=== PATIENT | female | born 1975 | race American Indian/Alaskan Native ===

== ENCOUNTER 2018-02-28 06:14 | Inpatient (IN) | payer BC, OTHER ==
[2018-02-26 11:26] VITALS: BMI 19.0
[2018-02-28 07:03] LABS: BASO % 1.1 % (0.0-2.0); EOS # 0.1 K/uL (0.0-0.7); EOS % 3.9 % (0.0-4.0); HEMOGLOBIN 8.1 g/dL (12.0-16.0); LYMPH # 1.1 K/uL (1.0-4.3); LYMPH % 34.8 % (20.0-40.0); MEAN CELL VOLUME 63.6 fl (81.0-99.0); MEAN CORPUSCULAR HEMOGLOBIN 18.6 pg (27.0-31.0); MEAN CORPUSCULAR HGB CONC 29.2 g/dL (33.0-37.0); MEAN PLATELET VOLUME 6.2 fl (7.2-11.7); MONO # 0.4 K/uL (0.0-0.8); MONO % 12.8 % (0.0-10.0); NEUT # 1.5 K/uL (1.8-7.0); NEUT % 47.4 % (50.0-75.0); NRBC % 0.1 % (0.0-0.0); RBC 4.39 Mil/uL (3.80-5.20); RED CELL DISTRIBUTION WIDTH 19.8 % (11.5-14.5); WHITE BLOOD COUNT 3.2 K/uL (4.8-10.8)
[2018-02-28] MEDS ORDERED: cefOXitin IV 1 gm in Dextrose 2 GM/100 ML BAG IVPB ONE (07:09)
[2018-02-28 07:14] LABS: PROTHROMBIN TIME 11.5 Seconds (9.8-13.1)
[2018-02-28 07:24] LABS: BLOOD UREA NITROGEN 10 mg/dl (7-17); CALCIUM 8.9 mg/dL (8.4-10.2); GFR NON-AFRICAN AMERICAN > 60
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
[2018-02-28] MEDS ORDERED: ePHEDrine 50 mg/ml Inj ONE (07:51)
[2018-02-28] MEDS ORDERED: Midazolam 2 MG/2 ML VIAL ONE (07:52)
[2018-02-28] MEDS ORDERED: Rocuronium 10 mg/ml (5 ml) ONE (07:53)
[2018-02-28] MEDS ORDERED: Succinylcholine 200 mg/10 ml Inj IV ONE (07:55)
[2018-02-28] MEDS ORDERED: Propofol 10 mg/ml Inj (20 ML) ONE (07:55)
[2018-02-28] MEDS ORDERED: Albuterol HFA 90 mcg/actuation (8 g) ONE (07:56)
--- NOTE | 2018-02-28 08:25 | RAD ---
Date of service: 02/28/2018 HISTORY: preop COMPARISON: No prior. TECHNIQUE: Chest PA and lateral FINDINGS: LUNGS: No acute pulmonary disease appreciated bilaterally. PLEURA: No significant pleural effusion identified. No pneumothorax apparent. CARDIOVASCULAR: Normal. OSSEOUS STRUCTURES: No significant abnormalities. VISUALIZED UPPER ABDOMEN: Normal. OTHER FINDINGS: Rounded metallic clips are seen in the bilateral breasts potentially reflecting nipple rings or biopsy clips. IMPRESSION: No acute cardiopulmonary disease appreciated.
[2018-02-28] MEDS ORDERED: Lactated Ringer's 1,000 ML IV ONE ×2 (08:30→09:40)
[2018-02-28] MEDS ORDERED: Sodium Chloride 0.9% 1,000 ML IV ONE (08:55)
[2018-02-28] MEDS ORDERED: Neostigmine 1:1000 (1 mg/ml) Inj ONE (10:35)
[2018-02-28] MEDS ORDERED: DiphenhydrAMINE 50 mg/ml Inj IVP PRN (11:31)
[2018-02-28 11:51] LABS: ABG ALLEN TEST YES; ARTERIAL BLOOD GAS HCO3 21.2 mmol/L (21-28); ARTERIAL BLOOD GAS HEMOGLOBIN 9.6 g/dL (11.7-17.4); ARTERIAL BLOOD GAS O2 CAPACITY 13.9 mL/dL (16-24); ARTERIAL BLOOD GAS O2 SAT 100.6 % (95-98); ARTERIAL BLOOD GAS PCO2 38 mm/Hg (35-45); ARTERIAL BLOOD GAS PH 7.34 (7.35-7.45); ARTERIAL BLOOD GAS PO2 275 mm/Hg (80-100); ARTERIAL BLOOD GAS TCO2 21.7 mmol/L (22-28)
[2018-02-28] MEDS: Acetaminophen IV 1,000 MG in IV SUPPLIES 0 ML IVPB SCH ×3 (11:55→23:25)
[2018-02-28] MEDS: HYDROmorphone 0.5 mg/0.5 ml ISec IVP PRN ×2 (12:10→12:25)
[2018-02-28] MEDS ORDERED: Lactated Ringer's 1,000 ML IV SCH (13:00)
[2018-02-28] MEDS: Lactated Ringer's 1,000 ML IV SCH ×2 (13:50→15:47)
[2018-02-28 16:05] LABS: HEMOGLOBIN 9.4 g/dL (12.0-16.0); MEAN CELL VOLUME 70.1 fl (81.0-99.0); MEAN CORPUSCULAR HEMOGLOBIN 21.1 pg (27.0-31.0); MEAN CORPUSCULAR HGB CONC 30.1 g/dL (33.0-37.0); RBC 4.44 Mil/uL (3.80-5.20); RED CELL DISTRIBUTION WIDTH 25.2 % (11.5-14.5); WHITE BLOOD COUNT 14.8 K/uL (4.8-10.8)
[2018-02-28] MEDS: cefOXitin IV 1 gm in Dextrose 1 GM/50 ML BAG IVPB SCH (16:58)
[2018-03-01] MEDS: cefOXitin IV 1 gm in Dextrose 1 GM/50 ML BAG IVPB SCH ×2 (00:15→09:18)
[2018-03-01] MEDS: Simethicone 80 mg Chewtab PO SCH ×4 (00:15→21:09)
[2018-03-01] MEDS: Lactated Ringer's 1,000 ML IV SCH (00:20)
[2018-03-01] MEDS: Acetaminophen IV 1,000 MG in IV SUPPLIES 0 ML IVPB SCH (05:49)
--- NOTE | 2018-03-01 14:11 | CP.PCM.PN ---
Subjective - Date & Time of Evaluation Date of Evaluation: 03/01/18 Time of Evaluation: 20:00 - Subjective Subjective: feels better toda and ambulating tolerating regular diet Objective - Vital Signs/Intake and Output Vital Signs (last 24 hours): Temp Pulse Resp BP Pulse Ox 99.2 F 82 20 119/78 100 03/01/18 12:20 03/01/18 12:20 03/01/18 12:20 03/01/18 12:20 03/01/18 12:20 Intake and Output: 03/01/18 03/01/18 06:59 18:59 Intake Total 2275 Output Total 2900 Balance -625 - Medications Medications: Current Medications Lactated Ringer's (Lactated Ringer's) 1,000 mls @ 125 mls/hr IV .Q8H [facility] Ibuprofen (Motrin Tab) 800 mg PO Q8 PRN PRN Reason: pain Simethicone (Mylicon Chew Tab) 80 mg PO Q6H [facility] Last Admin: 03/01/18 11:31 Dose: 80 mg - Labs Labs: 02/28/18 15:50 02/28/18 06:56 PT 11.5 Seconds (9.8-13.1) 02/28/18 06:56 INR 1.0 (0.9-1.2) 02/28/18 06:56 APTT 30.0 Seconds (25.6-37.1) 02/28/18 06:56 - Eye Exam Additional comments: v.s stable ansd afebrile incision clean and healing well Assessment and Plan - Assessment and Plan (Free Text) Assessment: stable pod1 s/p myomectomy Plan: continue pesent care
[2018-03-01] MEDS ORDERED: Simethicone 80 mg Chewtab PO ONE (15:00)
--- NOTE | 2018-03-02 02:50 | OP ---
PROCEDURE DATE: 02/28/2018 PREOPERATIVE DIAGNOSES: Fibroid uterus, pelvic pain, and anemia. POSTOPERATIVE DIAGNOSES: Fibroid uterus, pelvic pain, and anemia. SURGEON: Lio Weems MD RUG WEAVER: Anderson Tolentino MD ANESTHESIOLOGIST: Aiyana Beaver MD ANESTHESIA: General anesthesia. PROCEDURE: Myomectomy. FINDINGS: Many uterine fibroids, largest about a golf ball size, and 12 fibroids were removed in all. DESCRIPTION OF PROCEDURE: With the patient in supine position and under general anesthesia, the patient was prepped and draped in the usual sterile manner. Dr. Tolentino assisted in preparation for surgery. After this was done, a low Pfannenstiel incision was made and then taken down to the fascia in layers. The fascia was incised and extended bilaterally. Muscle was from the fascia by sharp dissection after which the muscle was opened in the midline. With Janelle clamps, the peritoneum was grasped, incised, and extended vertically. Upon entering the abdominopelvic cavity, the paracolic gutters were packed with wet laps, pushing the bowel away from the operative field. The uterus was elevated and the fibroids were removed sequentially, each time repairing the incision that was made with 2-0 Vicryl, maintaining hemostasis. There were, as I said before, several fibroids, removed, and each time the incision was . The estimated blood loss was about 200 mL. was available and the patient was given back 125 mL of blood plus 2 units of blood. After this was done, Surgicel and Interceed were used over the incisions to help maintain hemostasis eventually. After these were done, the peritoneum was grasped and closed with 1 Vicryl. The muscle was approximated with 1 Vicryl. The fascia was closed with 1 Vicryl running interlocking stitch, starting at each end and finishing in the midline. Dr. Tolentino is doing his half, and I am doing my half. The skin was closed in a subcuticular fashion with 3-0 Prolene. The patient tolerated the procedure well and was in satisfactory condition on her way to recovery room. Lio Weems MD
[2018-03-02] MEDS: Simethicone 80 mg Chewtab PO SCH ×2 (05:16→09:12)
[2018-03-02 05:42] VITALS: PULSE 88
[2018-03-02 09:14] VITALS: BP 112/76; RESP 18; TEMP 98.5; O2SAT 100
--- NOTE | 2018-03-02 12:23 | CP.PCM.PN ---
Subjective - Date & Time of Evaluation Date of Evaluation: 03/02/18 Time of Evaluation: 12:20 - Subjective Subjective: Denies n/v and tolerating diet well Had BM+ Denies SOB chest or leg pains Objective - Vital Signs/Intake and Output Vital Signs (last 24 hours): Temp Pulse Resp BP Pulse Ox 98.5 F 88 18 112/76 100 03/02/18 09:00 03/02/18 09:00 03/02/18 09:00 03/02/18 09:00 03/02/18 09:00 Intake and Output: 03/02/18 03/02/18 06:59 18:59 Intake Total 600 280 Balance 600 280 - Medications Medications: Current Medications Ibuprofen (Motrin Tab) 800 mg PO Q8 PRN PRN Reason: pain Last Admin: 03/02/18 09:11 Dose: 800 mg Simethicone (Mylicon Chew Tab) 80 mg PO Q6H [facility] Last Admin: 03/02/18 09:12 Dose: 80 mg - Labs Labs: 02/28/18 15:50 02/28/18 06:56 PT 11.5 Seconds (9.8-13.1) 02/28/18 06:56 INR 1.0 (0.9-1.2) 02/28/18 06:56 APTT 30.0 Seconds (25.6-37.1) 02/28/18 06:56 - Constitutional Appears: Well, No Acute Distress - Head Exam Head Exam: ATRAUMATIC - ENT Exam ENT Exam: Mucous Membranes Moist - Neck Exam Neck Exam: Full ROM - Respiratory Exam Respiratory Exam: NORMAL BREATHING PATTERN - GI/Abdominal Exam GI & Abdominal Exam: Soft Additional comments: not distended, depressible Incision clean and dry no suppt or discharge and no sign of infection - Extremities Exam Extremities Exam: Full ROM Additional comments: no leg edema or calf tenderness - Neurological Exam Neurological Exam: Alert, Awake, Oriented x3 - Psychiatric Exam Psychiatric exam: Normal Affect Assessment and Plan - Assessment and Plan (Free Text) Assessment: stable Plan: D/C home with instructions and follow up office 1 wk
--- NOTE | 2018-03-02 12:27 | CP.PCM.DIS ---
Provider - Provider Date of Admission: 02/28/18 12:43 Attending physician: Lio Weems MD Primary care physician: Lio Weems MD Time Spent in preparation of Discharge (in minutes): 10 Diagnosis - Discharge Diagnosis (1) Leiomyoma of uterus Status: Chronic (2) Pelvic pain Status: Chronic (3) Anemia Status: Chronic Hospital Course - Lab Results Lab Results: Most Recent Lab Values WBC 14.8 K/uL (4.8-10.8) H D 02/28/18 15:50 RBC 4.44 Mil/uL (3.80-5.20) 02/28/18 15:50 Hgb 9.4 g/dL (12.0-16.0) L 02/28/18 15:50 Hct 31.1 % (34.0-47.0) L 02/28/18 15:50 MCV 70.1 fl (81.0-99.0) L D 02/28/18 15:50 MCH 21.1 pg (27.0-31.0) L 02/28/18 15:50 MCHC 30.1 g/dL (33.0-37.0) L 02/28/18 15:50 RDW 25.2 % (11.5-14.5) H 02/28/18 15:50 Plt Count 250 K/uL (130-400) D 02/28/18 15:50 MPV 6.2 fl (7.2-11.7) L 02/28/18 06:56 Neut % (Auto) 47.4 % (50.0-75.0) L 02/28/18 06:56 Lymph % (Auto) 34.8 % (20.0-40.0) 02/28/18 06:56 [place] % (Auto) 12.8 % (0.0-10.0) H 02/28/18 06:56 Eos % (Auto) 3.9 % (0.0-4.0) 02/28/18 06:56 Baso % (Auto) 1.1 % (0.0-2.0) 02/28/18 06:56 Neut # (Auto) 1.5 K/uL (1.8-7.0) L 02/28/18 06:56 Lymph # (Auto) 1.1 K/uL (1.0-4.3) 02/28/18 06:56 [place] # (Auto) 0.4 K/uL (0.0-0.8) 02/28/18 06:56 Eos # (Auto) 0.1 K/uL (0.0-0.7) 02/28/18 06:56 Baso # (Auto) 0.0 K/uL (0.0-0.2) 02/28/18 06:56 PT 11.5 Seconds (9.8-13.1) 02/28/18 06:56 INR 1.0 (0.9-1.2) 02/28/18 06:56 APTT 30.0 Seconds (25.6-37.1) 02/28/18 06:56 pCO2 38 mm/Hg (35-45) 02/28/18 11:50 pO2 275 mm/Hg (80-100) H 02/28/18 11:50 HCO3 21.2 mmol/L (21-28) 02/28/18 11:50 ABG pH 7.34 (7.35-7.45) L 02/28/18 11:50 ABG Total CO2 21.7 mmol/L (22-28) L 02/28/18 11:50 ABG O2 Saturation 100.6 % (95-98) H 02/28/18 11:50 ABG O2 Content 14.0 ML/dL (15-23) L 02/28/18 11:50 ABG Base Excess -4.8 mmol/L (-2.0-3.0) L 02/28/18 11:50 ABG Hemoglobin 9.6 g/dL (11.7-17.4) L 02/28/18 11:50 ABG Carboxyhemoglobin 1.3 % (0.5-1.5) 02/28/18 11:50 POC ABG HHb (Measured) -0.6 % (0.0-5.0) L 02/28/18 11:50 ABG Methemoglobin 1.1 % (0.0-3.0) 02/28/18 11:50 ABG O2 Capacity 13.9 mL/dL (16-24) L 02/28/18 11:50 Zeyad Test Yes 02/28/18 11:50 A-a O2 Difference 34.0 mm/Hg 02/28/18 11:50 Hgb O2 Saturation 98.2 % (95.0-98.0) H 02/28/18 11:50 FiO2 50.0 % 02/28/18 11:50 Sodium 141 mmol/l (132-148) 02/28/18 06:56 Potassium 4.0 MMOL/L (3.6-5.0) 02/28/18 06:56 Chloride 108 mmol/L (98-107) H 02/28/18 06:56 Carbon Dioxide 22 mmol/L (22-30) 02/28/18 06:56 Anion Gap 15 (10-20) 02/28/18 06:56 BUN 10 mg/dl (7-17) 02/28/18 06:56 Creatinine 0.7 mg/dl (0.7-1.2) 02/28/18 06:56 Est GFR ( Amer) > 60 02/28/18 06:56 Est GFR (Non-Af Amer) > 60 02/28/18 06:56 Random Glucose 95 mg/dL (65-105) 02/28/18 06:56 Calcium 8.9 mg/dL (8.4-10.2) 02/28/18 06:56 Blood Type O POSITIVE 02/28/18 06:56 Antibody Screen Negative 02/28/18 06:56 Crossmatch See Detail 02/28/18 06:56 BBK History Checked Patient has bt 02/28/18 06:56 - Hospital Course Hospital Course: underwent abdominal myomectomy and BTL No operative complication Had blood transfusion secondary to anemia and did very well post-op Discharge Exam - Head Exam Head Exam: ATRAUMATIC - ENT Exam ENT Exam: Mucous Membranes Moist - Respiratory Exam Respiratory Exam: NORMAL BREATHING PATTERN - GI/Abdominal Exam GI & Abdominal Exam: Normal Bowel Sounds, Soft Additional comments: incision clean and dry no sign of infection - Extremities Exam Additional comments: no leg edema or calf tenderness - Neurological Exam Neurological exam: Alert, Oriented x3 Discharge Plan - Follow Up Plan Condition: GOOD Instructions: Myomectomy, Open Surgery, How to Wash Your Hands Properly Additional Instructions: pelvic and bed rest Rx for iron and Motrim 800mg q 8 hrs given Referrals: iLo Weems MD [Primary Care Provider] -
== END 2018-03-02 14:00 | disposition home or self-care (01) | DRG 743 ==
LOC: H.OPSURG 06:14 → H.PEDS 12:43
PROVIDERS: ADMIT Specialist; ATTEND Specialist
PROC: 0UB90ZZ Excision of Uterus, Open Approach (ICD-10-PCS; principal; 2018-02-28 08:00)
PROC: 30233N1 Transfusion of Nonautologous Red Blood Cells into Peripheral Vein, Percutaneous Approach (ICD-10-PCS; 2018-02-28 08:00)
DX: D25.9 Leiomyoma of uterus, unspecified (principal); J45.909 Unspecified asthma, uncomplicated; D64.9 Anemia, unspecified; Z88.6 Allergy status to analgesic agent; Z88.5 Allergy status to narcotic agent; Z91.018 Allergy to other foods

== ENCOUNTER 2018-04-18 09:52 | Emergency (ER) | payer BC, OTHER ==
[2018-04-18 09:53] VITALS: BMI 19.0
[2018-04-18 09:59] VITALS: RESP 18; TEMP 97.9; O2SAT 100
--- NOTE | 2018-04-18 11:09 | ED PDOC ---
HPI: Female Pain Time Seen by Provider: 04/18/18 10:19 Chief Complaint (Nursing): Female Genitourinary Chief Complaint (Provider): Female Genitourinary History Per: Patient History/Exam Limitations: no limitations Onset/Duration Of Symptoms: Days (1) Associated Symptoms: Urinary Symptoms (bleeding) Additional Complaint(s): 42 years old female with history of anemia presents to the ED for heavy vaginal bleeding onset yesterday. Patient reports her LNMP was normal on January 29 after myomectomy surgery but states this time the bleed is heavier than usual. She reports using 6 pads since last night. Patient also presents for evaluation of left index finger after she slammed it with a car door. She denies any pain at this time. PMD: Lio Weems Past Medical History Reviewed: Historical Data, Nursing Documentation, Vital Signs Vital Signs: Last Vital Signs Temp 97.9 F 04/18/18 09:59 Pulse 79 04/18/18 09:59 Resp 18 04/18/18 09:59 BP 117/84 04/18/18 09:59 Pulse Ox 100 04/18/18 09:59 - Medical History PMH: Anemia, Asthma Denies: Chronic Kidney Disease - Surgical History Other surgeries: Myomectomy - Family History Family History: States: Unknown Family Hx - Social History Current smoker - smoking cessation education provided: No Alcohol: None Drugs: Denies - Home Medications Home Medications: Ambulatory Orders Medication Instructions Recorded Ferrous Sulfate [Feosol] 324 mg PO DAILY 02/26/18 Ibuprofen [Advil] 200 mg PO PRN PRN 02/26/18 - Allergies Allergies/Adverse Reactions: Allergies Allergy/AdvReac Type Severity Reaction Status Date / Time acetaminophen [From Percocet] Allergy Severe ITCHING Verified 02/26/18 11:27 oxycodone [From Percocet] Allergy Severe ITCHING Verified 02/26/18 11:27 chicken Allergy Severe ITCHING Uncoded 02/26/18 11:27 IRON IV AdvReac ITCHING Uncoded 02/28/18 07:35 Review of Systems ROS Statement: Except As Marked, All Systems Reviewed And Found Negative Genitourinary Female: Positive for: Vaginal Bleeding (heavy) Physical Exam - Reviewed Nursing Documentation Reviewed: Yes Vital Signs Reviewed: Yes - Physical Exam Appears: Positive for: Non-toxic, No Acute Distress Head Exam: Positive for: ATRAUMATIC, NORMOCEPHALIC Skin: Positive for: Normal Color, Warm, Dry Extremity: Positive for: Normal ROM, Other (subungual hematoma to left index finger). Negative for: Tenderness Neurologic/Psych: Positive for: Alert, Oriented (x3). Negative for: Motor/ Sensory Deficits - Laboratory Results Result Diagrams: 04/18/18 11:30 04/18/18 11:30 - ECG O2 Sat by Pulse Oximetry: 100 (RA) Pulse Ox Interpretation: Normal Medical Decision Making Medical Decision Making: Time: 1103 Initial Impression: vaginal bleeding and subungual hematoma to left index finger Initial Plan: --Labs --Transvaginal US 1243 Transvaginal US FINDINGS: UTERUS: Measures 6 x 8.2 x 11.2 cm. Mildly enlarged heterogeneous uterus. Submucosal fibroid midline adjacent and posterior to the endometrium 1.5 x 1.7 x 2.1 cm. Sub serosal fibroid fundus measuring 1 x 1.5 x 1.5 cm. ENDOMETRIUM: Measures 6.7 mm in diameter. No ultrasound findings to suggest gestational sac, fluid, debris, mass or polyp or other pathologic process within the endometrium. CERVIX: No cervical abnormality identified. RIGHT OVARY: Measures 1.9 x 1.5 x 3 cm. No solid mass. Normal flow. LEFT OVARY: Measures 2.2 x 3.4 x 3.8 cm. No solid mass. Normal flow. Simple cyst 1.7 x 1.6 x 1.9 cm FREE FLUID: No significant free fluid noted. OTHER FINDINGS: None. IMPRESSION: Mildly enlarged myomatous uterus. Additional benign and/or incidental findings described above. ----- Scribe Attestation: Documented by Helen Ortiz, acting as a scribe for Salome Berkowitz MD. Provider Scribe Attestation: All medical record entries made by the Scribe were at my direction and personally dictated by me. I have reviewed the chart and agree that the record accurately reflects my personal performance of the history, physical exam, medical decision making, and the department course for this patient. I have also personally directed, reviewed, and agree with the discharge instructions and disposition. 2.00pm - case d/w Dr. Anders two times. First time when patient first presented. Now to discuss results of blood and US. Based on Hg of 12, he advised discharge , light activity and followup with him early next week. No meds on discharge. Disposition - Clinical Impression Clinical Impression: Vaginal bleeding - Patient ED Disposition Is Patient to be Admitted: No Doctor Will See Patient In The: Office Counseled Patient/Family Regarding: Diagnosis, Need For Followup - Disposition Referrals: Lio Weems MD [Staff Provider] - Disposition: Routine/Home Disposition Time: 14:00 Condition: STABLE Additional Instructions: Schedule followup appointment with Dr. Primitivo Obrien early next week. Instructions: Heavy Periods Forms: [employer] (Citizen [place])
[2018-04-18 11:49] LABS: INR 1.1
[2018-04-18 11:52] LABS: ALB/GLOB RATIO 1.4 (1.0-2.1); ALBUMIN 4.3 g/dL (3.5-5.0); ALT/SGPT 19 U/L (9-52); AST/SGOT 25 U/L (14-36); BLOOD UREA NITROGEN 8 mg/dl (7-17); GFR NON-AFRICAN AMERICAN > 60; PARTIAL THROMBOPLASTIN TIME 32.5 Seconds (25.6-37.1)
[2018-04-18 11:56] LABS: BASO % 1.2 % (0.0-2.0); EOS % 1.2 % (0.0-4.0); LYMPH # 1.3 K/uL (1.0-4.3); MEAN CELL VOLUME 80.6 fl (81.0-99.0); MEAN CORPUSCULAR HEMOGLOBIN 26.5 pg (27.0-31.0); MEAN CORPUSCULAR HGB CONC 32.8 g/dL (33.0-37.0); MEAN PLATELET VOLUME 6.9 fl (7.2-11.7); MONO # 0.4 K/uL (0.0-0.8); MONO % 11.1 % (0.0-10.0); NEUT # 1.6 K/uL (1.8-7.0); NEUT % 47.5 % (50.0-75.0); NRBC % 0.3 % (0.0-0.0); RBC 4.55 Mil/uL (3.80-5.20); RED CELL DISTRIBUTION WIDTH 29.6 % (11.5-14.5); WHITE BLOOD COUNT 3.3 K/uL (4.8-10.8)
--- NOTE | 2018-04-18 12:45 | US ---
Date of service: 04/18/2018 HISTORY: Vaginal bleeding. Relevant surgical history: 01/29/2018, myomectomy. LMP 04/16/2018. COMPARISON: None available. TECHNIQUE: Transvaginal only. Real -time technique with 2D, duplex and color Doppler FINDINGS: UTERUS: Measures 6 x 8.2 x 11.2 cm. Mildly enlarged heterogeneous uterus. Submucosal fibroid midline adjacent and posterior to the endometrium 1.5 x 1.7 x 2.1 cm. Sub serosal fibroid fundus measuring 1 x 1.5 x 1.5 cm. ENDOMETRIUM: Measures 6.7 mm in diameter. No ultrasound findings to suggest gestational sac, fluid, debris, mass or polyp or other pathologic process within the endometrium. CERVIX: No cervical abnormality identified. RIGHT OVARY: Measures 1.9 x 1.5 x 3 cm. No solid mass. Normal flow. LEFT OVARY: Measures 2.2 x 3.4 x 3.8 cm. No solid mass. Normal flow. Simple cyst 1.7 x 1.6 x 1.9 cm FREE FLUID: No significant free fluid noted. OTHER FINDINGS: None. IMPRESSION: Mildly enlarged myomatous uterus. Additional benign and/or incidental findings described above.
[2018-04-18 14:56] VITALS: BP 122/80; PULSE 74
== END 2018-04-18 14:45 | disposition home or self-care (01) ==
LOC: H.ER 09:52
DX: D25.0 Submucous leiomyoma of uterus (principal); D25.2 Subserosal leiomyoma of uterus; N83.291 Other ovarian cyst, right side; S60.122A Contusion of left index finger with damage to nail, initial encounter; Y92.89 Other specified places as the place of occurrence of the external cause; Z88.5 Allergy status to narcotic agent